=== PATIENT | female | born 1970 | race Caucasian/White ===

== ENCOUNTER 2017-07-29 09:26 | Day surgery (SDC) | payer OTHER ==
[~2017-07-29] VITALS: Ht 170.2 cm; Wt 92.0 kg
[2017-07-29] MEDS ORDERED: PROPOFOL 20 ML ONE (09:48)
[2017-07-29] MEDS ORDERED: LIDOCAINE 100 MG SYRINGE ONE (09:48)
[2017-07-29 10:09] VITALS: Ht 170.2 cm; Wt 92.0 kg
[2017-07-29] MEDS ORDERED: OMEP40CA6 PO (10:21)
[2017-07-29] MEDS ORDERED: FLUOXETINE (10:21)
[2017-07-29] MEDS ORDERED: QUET50TA22 PO (10:21)
[2017-07-29 10:50] VITALS: BP 122/85; PULSE 85; RESP 15
--- NOTE | 2017-07-29 11:27 | OPPN ---
Date/Time of Note Date/Time of Note DATE: 07/29/17 TIME: 11:26 Proc Note GI Procedure Date 07/29/17 Indication: diagnostic Pre-procedure Diagnosis Positive stool guaiac Post-procedure Diagnosis Gastritis Colon polyp prececal area successfully removed it was demyelinative with the cold biopsy forceps Procedure Performed: Endoscopy, Colonoscopy Surgeon see signature line [employer] Ax Developer none Anesthesia Type: MAC Tourniquet Time none EBL none Transfusion required none Biopsy 1: Gastric biopsy Polyp 1: We will biopsy forceps prececal polyp removed Grafts/Implants none Tubes/Drains none Complication(s) none Disposition: PACU Procedure Description Dictated DONTE PEOPLES MD Jul 29, 2017 11:27
--- NOTE | 2017-07-29 11:45 | GILP ---
DATE OF PROCEDURE: 07/29/2017 PROCEDURE PERFORMED: EGD with biopsy and colonoscopy with biopsy. INDICATION: A 46-year-old female undergoing this procedure for a positive stool guaiac and gastroes ophageal reflux disease and colonoscopy also for the positive stool guaiac. INFORMED CONSENT: The risk of the procedure, related and unrelated complications, anesthetic risks, alternatives discussed and informed consent was obtained. DESCRIPTION OF PROCEDURE: The patient was brought to the GI lab, sedated by [employer]PLIANCE [employer]SEMBLY SUPERVISOR. After obtaining sedation, scope was passed with much ease into esophagus. Z line was at 37 cm. Stomach mucosa reve aled gastritis. Multiple biopsies obtained. Duodenum, first and second part was within normal limi ts. Ampulla was normal. Retroversion in the stomach also was normal. Scope was straightened out a nd removed with good patient tolerance. IMPRESSION 1. Normal esophagus. 2. Z line at 37 cm. 3. Chronic gastritis. 4. Normal duodenum with ampulla. Plan: To review histopathology for bacteria. COLONOSCOPY REPORT: The patient was turned around, scope was passed with much ease into rectum, adv anced through sigmoid, descending, transverse colon all the way into cecum. Appendiceal orifice russell ntified. There was stone in the cecum precluding the visibility by 5 to 7%. Prececal polyp was russell ntified which was successfully removed by jumbo biopsy forceps. This was a diminutive polyp. Rest of the colon appeared normal. While coming out, mucosa thoroughly inspected. No gross lesion was identified, small hemorrhoids se en. Multiple diverticula seen. 1. Diverticulosis. 2. Hemorrhoids. 3. Polyp in the prececal area successfully removed by jumbo biopsy forceps. 4. Clarity and cleanliness was good. PLAN: Stay on high fiber diet. Dictated By: DONTE PEOPLES MD PJ/NTS Conf#: [id number] DID#: [id number] CC: DONTE PEOPLES MD;*EndCC*
[2017-07-29 11:50] VITALS: BP 111/77; RESP 16
== END 2017-07-29 12:03 | disposition home or self-care (01) ==
LOC: GIL 09:26
PROVIDERS: ATTEND Internal Medicine Gastroenterology
DX: R19.4 Change in bowel habit (principal); K57.90 Diverticulosis of intestine, part unspecified, without perforation or abscess without bleeding; K64.9 Unspecified hemorrhoids; K29.70 Gastritis, unspecified, without bleeding; J45.909 Unspecified asthma, uncomplicated; E66.9 Obesity, unspecified; Z68.31 Body mass index [BMI] 31.0-31.9, adult
CPT/HCPCS: 84703; 88305; 88312; J2001